=== PATIENT | male | born 1985 | race Two or more races ===

== ENCOUNTER 2020-09-12 22:44 | Emergency (ER) | payer MEDICAID ==
[~2020-09-12] VITALS: Ht 180.3 cm; Wt 100.0 kg
[2020-09-12 22:47] VITALS: BP 132/90
[2020-09-12] MEDS ORDERED: ONDANSETRON 4MG ODT PO STA (23:39)
== END 2020-09-13 02:13 | disposition left against medical advice (07) ==
LOC: EDBD 22:44 → ER 22:44
DX: F10.129 Alcohol abuse with intoxication, unspecified (principal); Y90.0 Blood alcohol level of less than 20 mg/100 ml
CPT/HCPCS: 99283

== ENCOUNTER 2020-09-13 02:16 | Emergency (ER) | payer MEDICAID ==
[~2020-09-13] VITALS: Ht 180.3 cm; Wt 88.0 kg
[2020-09-13] MEDS ORDERED: ACETAMINOPHEN 325MG TABLET PO ONE (03:15)
[2020-09-13] MEDS ORDERED: MAGNESIUM/ALUMINUM HYDROXIDE/SIMETHICONE 30ML UDC PO ONE (03:15)
[2020-09-13 07:23] VITALS: BP 121/84
== END 2020-09-13 07:25 | disposition home or self-care (01) ==
LOC: ER 02:16
DX: R07.89 Other chest pain (principal); J45.909 Unspecified asthma, uncomplicated
CPT/HCPCS: 71045; 93005; 99283

== ENCOUNTER 2020-12-17 15:02 | Emergency (ER) | payer MEDICAID ==
[~2020-12-17] VITALS: Ht 177.8 cm; Wt 91.0 kg
[2020-12-17 15:30] VITALS: BP 145/93
== END 2020-12-17 19:50 | disposition left against medical advice (07) ==
LOC: ER 15:02
DX: F10.129 Alcohol abuse with intoxication, unspecified (principal); Y90.9 Presence of alcohol in blood, level not specified; J45.909 Unspecified asthma, uncomplicated
CPT/HCPCS: 99283

== ENCOUNTER 2021-01-01 16:48 | Emergency (ER) | payer MEDICAID ==
[~2021-01-01] VITALS: Ht 180.3 cm; Wt 100.0 kg
[2021-01-01 16:50] VITALS: BP 132/84
== END 2021-01-01 18:13 | disposition left against medical advice (07) ==
LOC: ER 16:48
DX: R45.851 Suicidal ideations (principal); F31.9 Bipolar disorder, unspecified; F10.229 Alcohol dependence with intoxication, unspecified; J45.909 Unspecified asthma, uncomplicated; Y90.0 Blood alcohol level of less than 20 mg/100 ml
CPT/HCPCS: 99283

== ENCOUNTER 2021-04-20 01:00 | Emergency (ER) | payer MEDICAID ==
[~2021-04-20] VITALS: Ht 177.8 cm; Wt 90.7 kg
[2021-04-20 02:40] LABS: BASOPHILS % 0.8 % (0.0-2.0); EOSINOPHILS % 2.9 % (0.0-5.0); HEMATOCRIT. 46.3 % (42.0-52.0); LYMPHOCYTES % 19.2 % (20.0-50.0); MEAN CORPUSCULAR HEMOGLOBIN 26.2 pg (28.0-32.0); MEAN CORPUSCULAR VOLUME 81.1 fL (80.0-94.0); MEAN PLATELET VOLUME 10.2 fl (7.4-10.4); MONOCYTES % 4.7 % (2.0-8.0); NEUTROPHILS % 72.4 % (40.0-76.0); PLATELET 188 x1000/uL (130-400); RED BLOOD CELL COUNT 5.71 mill/uL (4.7-6.1)
[2021-04-20 02:44] LABS: CHLORIDE 111 mEq/L (98-107)
[2021-04-20 02:49] LABS: ETHANOL BLOOD 201 mg/dL
[2021-04-20 03:17] LABS: *COCAINE SCREEN URINE NEGATIVE (NEGATIVE)
[2021-04-20 03:18] LABS: *AMPHETAMINES SCREEN URINE NEGATIVE (NEGATIVE); *BARBITURATES SCREEN URINE NEGATIVE (NEGATIVE); *BENZODIAZEPINES SCREEN URINE NEGATIVE (NEGATIVE); CANNABINOID URINE SCREEN PRESUMTIVE POSITIVE (NEGATIVE); METHADONE URINE SCREEN NEGATIVE (NEGATIVE); OPIATES URINE SCREEN NEGATIVE (NEGATIVE); PHENCYCLIDINE URINE SCREEN NEGATIVE (NEGATIVE)
[2021-04-20] MEDS ORDERED: CITALOPRAM HYDROBROMIDE 10MG TABLET PO ONE (07:00)
[2021-04-20] MEDS ORDERED: HYDROXYZINE 25MG TABLET PO ONE (07:00)
[2021-04-20 10:45] VITALS: BP 126/88
== END 2021-04-20 10:48 | disposition home or self-care (01) ==
LOC: ER 01:04
DX: F32.9 Major depressive disorder, single episode, unspecified (principal); R45.851 Suicidal ideations; Z20.822 Contact with and (suspected) exposure to COVID-19; F12.90 Cannabis use, unspecified, uncomplicated; I10 Essential (primary) hypertension
CPT/HCPCS: 36415; 80053; 80305; 80307; 80320; 80329; 85025; 93005; 99284; C9803; U0003; U0005; G0480